=== PATIENT | female | born 1950 | race Caucasian/White ===

== ENCOUNTER 2021-02-02 17:35 | Emergency (ER) | payer MEDICARE, OTHER ==
[~2021-02-02] VITALS: Ht 149.9 cm; Wt 49.9 kg
[~2021-02-02 17:35] MED LIST: AMOXICILLIN250 MG PO
[2021-02-02] MEDS ORDERED: KETOROLAC TROMETHAMINE 30 MG/ML VIAL IM ONE (18:45)
[2021-02-02] MEDS ORDERED: AMLODIPINE BESYL5 MG PO (18:57)
[2021-02-02] MEDS ORDERED: LACTULOSE20 GM/30 M PO (18:58)
[2021-02-02] MEDS ORDERED: ONDANSETRON ODT4 MG PO (18:58)
[2021-02-02] MEDS ORDERED: MACROBID 100 M100 MG PO (18:58)
[2021-02-02] MEDS ORDERED: ESTRACE42.5 GM TOP (18:58)
[2021-02-02] MEDS ORDERED: KETOROLAC TROMETHAMINE 30 MG/ML VIAL ONE (19:11)
[2021-02-02] MEDS ORDERED: ONDANSETRON HCL 4 MG ORAL DISINTEGRATING TAB PO ONE (19:30)
[2021-02-02] MEDS ORDERED: IBUPROFEN600 MG PO (21:11)
== END 2021-02-02 21:22 | disposition home or self-care (01) ==
LOC: FSED 18:10
DX: M54.5 Low back pain (principal); R30.0 Dysuria; N20.0 Calculus of kidney; I10 Essential (primary) hypertension
CPT/HCPCS: 74176; 99283; J1885

== ENCOUNTER → 2021-02-24 | Outpatient (CLI) | payer MEDICARE ==
[~2021-02-24] MED LIST changes: +AMLODIPINE BESYL5 MG PO; +ESTRACE42.5 GM TOP; +IBUPROFEN600 MG PO; +LACTULOSE20 GM/30 M PO; +MACROBID 100 M100 MG PO; +ONDANSETRON ODT4 MG PO
== END ==
LOC: US 07:31
PROVIDERS: ATTEND Surgery
DX: R10.9 Unspecified abdominal pain (principal)
CPT/HCPCS: 76705

== ENCOUNTER → 2021-03-10 | Outpatient (CLI) | payer MEDICARE | LOC: NM 09:11 | PROVIDERS: ATTEND Surgery | DX: R10.11 Right upper quadrant pain (principal) | CPT/HCPCS: 78226; A9537 ==

== ENCOUNTER → 2021-03-20 | Day surgery (SDC) | payer MEDICARE ==
[2021-03-18 10:09] LABS: BASOPHILS % 0.6 % (0.0-1.0); EOSINOPHILS # (AUTO) 0.3 (0.0-0.4); EOSINOPHILS % 5.4 % (0.0-6.0); HEMATOCRIT 41.5 % (34.2-44.1); HEMOGLOBIN 13.8 g/dL (12.0-16.0); LYMPHOCYTES # (AUTO) 1.1 (1.0-3.2); LYMPHOCYTES % 22.9 % (18.0-39.1); MEAN CORPUSCULAR HEMOGLOBIN 30.5 pg (28-32); MEAN CORPUSCULAR HGB CONC 33.3 g/dL (31-35); MEAN CORPUSCULAR VOLUME 91.8 fL (81-99); MONOCYTES # (AUTO) 0.4 (0.2-0.8); MONOCYTES % 7.6 % (4.4-11.3); NEUTROPHILS # (AUTO) 3.1 (2.1-6.9); NEUTROPHILS % 63.1 % (38.7-80.0); PLATELET COUNT 208 x10e3/uL (140-360); RED BLOOD COUNT 4.52 x10e6/uL (3.6-5.1); RED CELL DISTRIBUTION WIDTH 12.4 % (11.7-14.4)
[2021-03-18 10:32] LABS: ALBUMIN/GLOBULIN RATIO 1.1 (0.8-2.0); ANION GAP 15.2 mmol/L (8-16); CALCIUM 9.2 mg/dL (8.4-10.2); CREATININE, SERUM 0.61 mg/dL (0.57-1.11); POTASSIUM 4.2 mmol/L (3.5-5.1)
[~2021-03-20] MED LIST changes: +BUPIVACAINE HCL 0.5% INJ 30 ML VIAL INJ ONE; +SODIUM CHLORIDE 0.9% 50ML 100 ML ONE; +ULTRACET TABLE1 EACH PO
[2021-03-20 13:55] VITALS: BP 128/60
== END | disposition home or self-care (01) ==
LOC: OR 09:44
PROVIDERS: ATTEND Surgery
DX: K80.10 Calculus of gallbladder with chronic cholecystitis without obstruction (principal); K82.8 Other specified diseases of gallbladder; I10 Essential (primary) hypertension; J30.2 Other seasonal allergic rhinitis; N20.0 Calculus of kidney; F41.9 Anxiety disorder, unspecified; Z88.6 Allergy status to analgesic agent; Z01.810 Encounter for preprocedural cardiovascular examination; Z01.812 Encounter for preprocedural laboratory examination; Z01.818 Encounter for other preprocedural examination; Z20.822 Contact with and (suspected) exposure to COVID-19
CPT/HCPCS: 36415; 47562; 71046; 80053; 85025; 88304; 93005; J0690; U0002

== ENCOUNTER 2022-01-05 10:00 | Emergency (ER) | payer MEDICARE ==
[~2022-01-05] VITALS: Ht 149.9 cm; Wt 51.3 kg
[~2022-01-05 10:00] MED LIST changes: -BUPIVACAINE HCL 0.5% INJ 30 ML VIAL INJ ONE; -SODIUM CHLORIDE 0.9% 50ML 100 ML ONE
[2022-01-05] MEDS ORDERED: CHILDREN'S COL118 M1 PO (11:28)
[2022-01-05] MEDS ORDERED: AZITHROMYC200 MG/5 M PO (11:28)
== END 2022-01-05 11:49 | disposition home or self-care (01) ==
LOC: FSED 10:38
DX: R05.9 Cough, unspecified (principal); J40 Bronchitis, not specified as acute or chronic; J06.9 Acute upper respiratory infection, unspecified; Z20.822 Contact with and (suspected) exposure to COVID-19
CPT/HCPCS: 71046; 99283; U0002

== ENCOUNTER → 2022-02-05 | Day surgery (SDC) | payer MEDICARE ==
[2022-02-03 10:39] LABS: BASOPHILS % 0.3 % (0.0-1.0); EOSINOPHILS # (AUTO) 0.2 (0.0-0.4); HEMATOCRIT 39.4 % (34.2-44.1); HEMOGLOBIN 12.8 g/dL (12.0-16.0); LYMPHOCYTES # (AUTO) 0.8 (1.0-3.2); LYMPHOCYTES % 21.9 % (18.0-39.1); MEAN CORPUSCULAR HEMOGLOBIN 30.5 pg (28-32); MEAN CORPUSCULAR HGB CONC 32.5 g/dL (31-35); MEAN CORPUSCULAR VOLUME 93.8 fL (81-99); MONOCYTES # (AUTO) 0.3 (0.2-0.8); MONOCYTES % 9.9 % (4.4-11.3); NEUTROPHILS # (AUTO) 2.2 (2.1-6.9); NEUTROPHILS % 62.9 % (38.7-80.0); PLATELET COUNT 188 x10e3/uL (140-360); RED CELL DISTRIBUTION WIDTH 12.5 % (11.7-14.4)
[~2022-02-05] MED LIST changes: +AZITHROMYC200 MG/5 M PO; +CALCIUM; +CHILDREN'S COL118 M1 PO; +CLONAZEPAM2 MG; +LIDOCAINE HCL 2% LOCAL INJ 5 ML SDV VIAL INJ ONE; +MULTI-VITAMIN1 EACH PO; +PROPOFOL IV EMULSION 10 MG/ML 20 ML VIAL ONE
[2022-02-05 07:55] VITALS: BP 109/66
== END | disposition home or self-care (01) ==
LOC: OR 06:36
PROVIDERS: ATTEND Internal Medicine Gastroenterology
DX: Z12.11 Encounter for screening for malignant neoplasm of colon (principal); D12.8 Benign neoplasm of rectum; K64.8 Other hemorrhoids; I10 Essential (primary) hypertension; Z88.6 Allergy status to analgesic agent; Z01.810 Encounter for preprocedural cardiovascular examination; Z01.812 Encounter for preprocedural laboratory examination; Z79.899 Other long term (current) drug therapy
CPT/HCPCS: 36415; 45385; 85025; 88305; 93005; J2001; J2704; 45378

== ENCOUNTER 2022-03-30 00:54 | Emergency (ER) | payer MEDICARE ==
[~2022-03-30] VITALS: Ht 149.9 cm; Wt 51.3 kg
[~2022-03-30 00:54] MED LIST changes: -LIDOCAINE HCL 2% LOCAL INJ 5 ML SDV VIAL INJ ONE; -PROPOFOL IV EMULSION 10 MG/ML 20 ML VIAL ONE
[2022-03-30] MEDS ORDERED: KETOROLAC TROMETHAMINE 60 MG/2 ML VIAL IM ONE (01:15)
[2022-03-30] MEDS ORDERED: KETOROLAC TROMETHAMINE 30 MG/ML VIAL ONE (01:32)
[2022-03-30] MEDS ORDERED: MELOXICAM7.5 MG PO (02:28)
== END 2022-03-30 03:24 | disposition home or self-care (01) ==
LOC: FSED 01:01
DX: R10.30 Lower abdominal pain, unspecified (principal); I10 Essential (primary) hypertension; Z87.442 Personal history of urinary calculi
CPT/HCPCS: 74176; 80053; 85025; 99284; J1885